=== PATIENT | male | born 1965 | race Caucasian/White ===

== ENCOUNTER → 2017-02-03 | Outpatient (CLI) | payer OTHER ==
[~2017-02-03] MED LIST: AMPH20TA2 PO; BUPR150T5 PO; CYCL0.052 OPB; LPT10 PO; OXYC1TAB3 PO; RMRS/45 PO; TAMS0.4C38 PO; TRIATAB3 PO; VLM5CL PO; WLLXL300 PO
[2017-02-03 11:29] LABS: ALT/SGPT 51 U/L (12-78); AST/SGOT 30 U/L (15-37); BLOOD UREA NITROGEN 12 mg/dl (7-18); BUN/CREATININE RATIO 10.5 (10-20); CALCIUM 9.5 mg/dl (8.5-10.1); CARBON DIOXIDE 30 mmol/L (21-32); CHLORIDE 107 mmol/L (98-107); CHOLESTEROL 184 mg/dl (0-200); GLUCOSE 93 mg/dl (70-99); SODIUM 142 mmol/L (136-145); TRIGLYCERIDES 109 mg/dl (0-150); VERY LOW DENSITY LIPOPROT CALC 22 mg/dl
[2017-02-03 11:39] LABS: ALB/GLOB RATIO 1.2 (0.9-2); ALKALINE PHOSPHATASE 87 U/L (45-117); CHOLESTEROL/HDL RATIO 3.4; HDL CHOLESTEROL 54 mg/dl; LDL CHOLESTEROL CALCULATED 108 mg/dl
== END | disposition home or self-care (01) ==
LOC: C.LABBC 07:52
PROVIDERS: ATTEND Family Medicine
DX: R94.31 Abnormal electrocardiogram [ECG] [EKG] (principal); Z11.59 Encounter for screening for other viral diseases; E78.5 Hyperlipidemia, unspecified

== ENCOUNTER → 2017-03-16 | Outpatient (CLI) | payer OTHER ==
[~2017-03-16] MED LIST changes: +GADAVIST IV PRN
--- NOTE | 2017-03-16 08:56 | DIAGNOSTIC IMAGING REPORT ---
Brain and internal auditory canal MRI WITH AND WITHOUT CONTRAST HISTORY: Left-sided hearing loss. H90.5 Asymmetric SNHL (sensorineural hearing loss)PATIENT WITH R TECHNIQUE: Multiplanar multisequence MRI of the brain was performed both before and after the intravenous administration of contrast. COMPARISON STUDY: Brain MRI 06/30/2016. FINDINGS: There are no areas of restricted diffusion to suggest acute infarction. The paranasal sinuses are clear. The mastoid air cells are clear. The ventricles and sulci are within normal limits for age. There is no mass, hematoma, midline shift. The major vascular flow-voids at the skull base are well maintained. Postcontrast sequences show no areas of abnormal enhancement. There are few punctate foci of T2 hyperintensity within the white matter of the supratentorial brain. These are nonspecific but favor minimal microvascular ischemic change. Stable prominent perivascular space within the right posterior frontal white matter. This measures 14 mm. Partially empty sella, unchanged. No masses or abnormal enhancement within the bilateral internal auditory canals. The 7th and 8th cranial nerves are normal in course and caliber. IMPRESSION: 1. No significant change compared to the prior study. No acute intracranial abnormality. 2. Normal bilateral internal auditory canals. Electronically signed by: Cesar Oates M.D. 03/16/2017 8:54 AM Dictated Date/Time: 03/16/2017 8:46 AM
== END | disposition home or self-care (01) ==
DX: H90.5 Unspecified sensorineural hearing loss (principal)

== ENCOUNTER 2017-04-30 16:00 | Emergency (ER) | payer OTHER ==
[~2017-04-30] VITALS: Ht 182.9 cm; Wt 70.7 kg
[~2017-04-30 16:00] MED LIST changes: -GADAVIST IV PRN; -OXYC1TAB3 PO; -TAMS0.4C38 PO; -TRIATAB3 PO
[2017-04-30 16:08] VITALS: TEMP 36.5; Ht 182.9 cm; Wt 70.7 kg
--- NOTE | 2017-04-30 16:28 | EMERGENCY ROOM VISIT NOTE ---
History Report prepared by Jose: Bharat Verdin Under the Supervision of: Dr. Wilbur Tarango M.D. First contact with patient: 16:17 Chief Complaint: KIDNEY STONE Stated Complaint: KIDNEY STONE History of Present Illness The patient is a 52 year old male who presents to the Emergency Room with complaints of sharp RLQ abdominal pain that began 1 and a half hour ago. He rates his pain a 10/10 in severity. He has a past medical history of kidney stones and states that he feels like his current symptoms are similar to those of a kidney stone. His last kidney stone happened 10 years ago. He is currently nauseated. His pain wraps around into his right flank as well. He denies any vomiting at this time. Source of History: patient Onset: 1.5 hours ago Position: abdomen (RLQ) Symptom Intensity: 10/10 Quality: sharp Timing: constant Associated Symptoms: + nausea, + back pain (right flank), No vomiting Review of Systems All systems have been listed, reviewed, and are negative other than those previously mentioned. Please see Additional Medical History Sheet. Past Medical & Surgical Medical Problems: (1) Anxiety (2) Calculus Of Kidney (3) Depression Family History Omitted secondary to the patient's age. Social History Smoking Status: Never Smoker Smokeless Tobacco Use: No Drug Use: none Marital Status: Housing Status: lives with significant other Occupation Status: employed Current/Historical Medications Scheduled Atorvastatin (Atorvastatin Calcium), 10 MG PO HS Bupropion HCl (Bupropion HCl Xl), 300 MG PO QAM Bupropion Hcl (Bupropion Hcl Xl), 150 MG PO QAM Mirtazapine (Mirtazapine), 45 MG PO HS Scheduled PRN Amphetamine-Dextroamphetamine 20MG (Adderall 20MG), 20 MG PO BID PRN for Focus Cyclosporine (Ophth) (Restasis), 1 DROP OPB BID PRN for Dry Eye(s) Diazepam (Diazepam), 2.5-5 MG PO DAILY PRN for Anxiety Allergies Coded Allergies: Amoxicillin (Verified Allergy, Unknown, RASH A CHILD, 06/30/16) Physical Exam Vital Signs Date Time Temp Pulse Resp B/P (MAP) Pulse Ox O2 Delivery O2 Flow Rate FiO2 04/30/17 17:55 98 Nasal Cannula 2.0 04/30/17 17:02 138/78 04/30/17 17:00 67 16 04/30/17 16:52 69 04/30/17 16:49 152/94 04/30/17 16:49 98 Room Air 04/30/17 16:08 36.5 78 22 146/72 100 Room Air Physical Exam GENERAL: Patient awake, alert, oriented x 3. Patient is in severe distress and grimacing in pain. Patient follows commands. Patient does not appear toxic. Patient is adequately hydrated and well-nourished. SKIN: No erythema, pallor, cyanosis or rash HEENT: Normal head, pupils equal, reactive to light and accommodation. LUNGS: Clear to auscultation. No wheezes, no rales, no rhonchi. HEART: No murmurs. No gallops. No rubs ABDOMEN: Right sided tenderness. No rebound or guarding. No masses, no rebound, no hepatomegaly or splenomegaly. EXTREMITIES: Femoral pulses are intact and strong bilateral. No signs of trauma/ infection. No pedal or pretibial edema. No calf or thigh tenderness. NEUROLOGIC: Cranial nerves II-XII within normal limits. No gross motor sensory function deficits. Medical Decision & Procedures ER Provider Diagnostic Interpretation: Radiology results as stated below per my review and radiologist interpretation: KUB HISTORY: right flank pain past kidney stone COMPARISON: Abdomen and pelvis CT 12/30/2011. FINDINGS: The bowel gas pattern is unremarkable. There are no dilated loops of small bowel to suggest an obstruction. No renal calculi. No ureteral calculi. No pneumoperitoneum or pneumatosis. Moderate well-formed stool seen within the colon. IMPRESSION: No renal or ureteral stones. Electronically signed by: Cesar Oates M.D. 04/30/2017 5:48 PM Dictated Date/Time: 04/30/2017 5:46 PM Laboratory Results 04/30/17 16:25 Test 04/30/17 16:25 Red Blood Count 4.88 M/uL (4.7-6.1) Mean Corpuscular Volume 85.5 fL (80-100) Mean Corpuscular Hemoglobin 30.7 pg (25-34) Mean Corpuscular Hemoglobin Concent 36.0 g/dl (32-36) RDW Standard Deviation 38.6 fL (36.4-46.3) RDW Coefficient of Variation 12.4 % (11.5-14.5) Mean Platelet Volume 9.4 fL (7.4-10.4) Laboratory results as stated above per my review. Medications Administered Medications (Trade) Dose Ordered Sig/Isabelle Route Start Time Stop Time Status Last Admin Dose Admin Morphine Sulfate (MoRPHine SULFATE INJ) 6 mg Q1H PRN IV 04/30/17 16:30 05/14/17 16:29 04/30/17 16:37 6 MG Ondansetron HCl (Zofran Inj) 4 mg Q1HWA PRN IV 04/30/17 16:30 05/30/17 16:29 04/30/17 16:36 4 MG Ketorolac Tromethamine (Toradol Inj) 30 mg NOW STAT IV 04/30/17 16:41 04/30/17 16:43 DC 04/30/17 16:46 30 MG Hydromorphone HCl (Dilaudid Inj) 1 mg Q1HWA PRN IV 04/30/17 17:30 05/14/17 17:29 04/30/17 17:29 1 MG ED Course 1617: Past medical records reviewed. The patient was evaluated in room C4. A complete history and physical examination was performed. 1630: Ordered Zofran Inj 4 mg IV, Morphine Sulfate 6 mg IV 1640: The patient is still in a lot of pain. 1641: Ordered Toradol Inj 30 mg IV 1730: Ordered Dilaudid Inj 1 mg IV 1800: The patient was signed out to Dr. Hernández at the change in shifts. Medical Decision Differential diagnoses considered include kidney stone, aortic dissection/ aneurysm, bowel obstruction, and pyelonephritis. Exam was with a ureteral calculus. The patient is in severe pain given multiple doses of pain medication. His pain was finally under control after Dilaudid. KUB did not reveal the stone and therefore CT was ordered. Urinalysis is still pending. White count is not elevated. The case was signed off to Dr. eHrnández at 1800. Medication Reconcilliation Current Medication List: was personally reviewed by me Blood Pressure Screening Patient's blood pressure: Elevated blood pressure Blood pressure disposition: Elevated BP felt to be situational Impression Primary Impression: Right flank pain Scribe Attestation The scribe's documentation has been prepared under my direction and personally reviewed by me in its entirety. I confirm that the note above accurately reflects all work, treatment, procedures, and medical decision making performed by me. Departure Information Dispostion Still a Patient Referrals No Doctor, Assigned (PCP) Patient Instructions My [facility]
[2017-04-30] MEDS ORDERED: ONDANSETRON INJ 2 MG/ML 2 ML VIAL IV PRN (16:30)
[2017-04-30] MEDS ORDERED: MoRPHine SULFATE 10 MG/ML CARP/VIAL IV PRN (16:30)
[2017-04-30 16:38] LABS: HEMATOCRIT 41.7 % (42-52); MEAN CELL VOLUME 85.5 fL (80-100); MEAN CORPUSCULAR HEMOGLOBIN 30.7 pg (25-34); MEAN PLATELET VOLUME 9.4 fL (7.4-10.4); PLATELET COUNT 270 K/uL (130-400); RED BLOOD COUNT 4.88 M/uL (4.7-6.1); WHITE BLOOD COUNT 8.85 K/uL (4.8-10.8)
[2017-04-30] MEDS ORDERED: KETOROLAC TROMETHAMINE 30 MG/ML VIAL IV STA (16:41)
[2017-04-30] MEDS ORDERED: KETOROLAC TROMETHAMINE 30 MG/ML VIAL ONE (16:43)
[2017-04-30] MEDS ORDERED: HYDROmorphone INJ 1 MG/ML SYR IV PRN (17:30)
--- NOTE | 2017-04-30 17:50 | DIAGNOSTIC IMAGING REPORT ---
KUB HISTORY: right flank pain past kidney stone COMPARISON: Abdomen and pelvis CT 12/30/2011. FINDINGS: The bowel gas pattern is unremarkable. There are no dilated loops of small bowel to suggest an obstruction. No renal calculi. No ureteral calculi. No pneumoperitoneum or pneumatosis. Moderate well-formed stool seen within the colon. IMPRESSION: No renal or ureteral stones. Electronically signed by: Cesar Oates M.D. 04/30/2017 5:48 PM Dictated Date/Time: 04/30/2017 5:46 PM
[2017-04-30 17:55] VITALS: O2SAT 98
[2017-04-30 18:19] LABS: BUN/CREATININE RATIO 10.9 (10-20); CALCIUM 9.4 mg/dl (8.5-10.1); CREATININE 1.5 mg/dl (0.60-1.40); POTASSIUM 3.6 mmol/L (3.5-5.1)
--- NOTE | 2017-04-30 18:34 | EMERGENCY ROOM VISIT NOTE ---
ED Visit Note First contact with patient: 18:32 This patient was signed out to me by Dr. Tarango at shift change. At that point, the patient had been medicated with several pain medications and was finally feeling better. Blood work had been obtained. CAT scan was pending. There is a 2 mm proximal stone seen on CAT scan. I went back and evaluated the patient is resting comfortably. The patient had no further pain and was observed in the ER as urinalysis does not suggest a UTI he has no findings to suggest that he has UTI or pyelonephritis. He was given Flomax here as well as a prescription. He was given a prescription as well as a home pack for OxyIR for pain medication. He was warned that OxyIR could make him drowsy and do not take before drinking, driving, working. He was encouraged to follow with his urologist on Tuesday for recheck and strain his urine and drink plenty fluids. He should use ibuprofen 600 mg every 6 hours and use OxyIR for breakthrough pain but do not use any other narcotics or sedating medications. Return ER if: increasing pain, fever or chills, worsening of symptoms, any new problems or concerns per the patient's were happy the plan and he was discharged home.
[2017-04-30] MEDS ORDERED: TRIATAB3 PO (18:54)
--- NOTE | 2017-04-30 18:57 | DIAGNOSTIC IMAGING REPORT ---
ABDOMEN AND PELVIS CT WITHOUT CONTRAST CT DOSE: 351.25 mGy.cm HISTORY: right flank pain TECHNIQUE: Multiaxial CT images of the abdomen and pelvis were performed without the use of intravenous and oral contrast according to the standard department stone protocol. A dose lowering technique was utilized adhering to the principles of ALARA. COMPARISON STUDY: KUB 04/30/2017. FINDINGS: There are no right renal calculi. There is a punctate stone within the left kidney. No left-sided hydronephrosis. Normal bladder. There is a 2 mm obstructing stone within the proximal right ureter on image 246. This results in mild right hydronephrosis. Mild dependent changes seen at the lung bases. No suspicious lytic or blastic osseous lesions. A 9 mm hypodense lesion within the right hepatic lobe. This is incompletely characterize on this noncontrast study. The unenhanced spleen, pancreas, gallbladder, and adrenal glands are unremarkable. No retroperitoneal lymphadenopathy. Suboptimal evaluation for bowel pathology due to the lack of intravenous and oral contrast. However, there is no definite bowel wall thickening or obstruction. Normal appendix. IMPRESSION: 1. A 2 mm obstructing stone within the proximal right ureter resulting in mild right hydronephrosis. In retrospect, this may be present on the same day KUB at the level of the right L3 transverse process. 2. Left-sided nephrolithiasis. Electronically signed by: Cesar Oates M.D. 04/30/2017 6:56 PM Dictated Date/Time: 04/30/2017 6:50 PM
[2017-04-30 19:48] LABS: URINE APPEARANCE CLEAR (CLEAR); URINE BILIRUBIN NEG (NEG); URINE COLOR DK YELLOW; URINE NITRITE NEG (NEG); URINE SPECIFIC GRAVITY 1.023 (1.000-1.030); UROBILINOGEN NEG (NEG); ZZUR CULT IF INDIC CLEAN CATCH NO
[2017-04-30 19:51] LABS: MANUAL MICROSCOPIC REQUIRED? NO; REVIEW REQ? NO
[2017-04-30] MEDS ORDERED: TAMS0.4C38 PO (20:57)
[2017-04-30] MEDS ORDERED: OXYC1TAB3 PO (20:57)
[2017-04-30] MEDS ORDERED: TAMSULOSIN HCL 0.4 MG CAP PO ONE (21:00)
[2017-04-30] MEDS ORDERED: OXYCODONE IR HOME PACK PO ONE (21:00)
[2017-04-30 21:19] VITALS: BP 140/83; PULSE 71; O2SAT 99
== END 2017-04-30 21:29 | disposition home or self-care (01) ==
LOC: C.EDB 16:02 → C.EDC 21:29
DX: R10.31 Right lower quadrant pain (principal); F32.9 Major depressive disorder, single episode, unspecified; F41.9 Anxiety disorder, unspecified; Z87.442 Personal history of urinary calculi; Z79.899 Other long term (current) drug therapy; Z88.1 Allergy status to other antibiotic agents